=== PATIENT | male | born 1965 | race American Indian/Alaskan Native ===

== ENCOUNTER 2017-08-09 09:59 | Day surgery (SDC) | payer OTHER ==
[~2017-08-09 09:59] MED LIST: WATER FOR IRRIG STERILE IR ONE
--- NOTE | 2017-08-09 10:53 | Anesthesia Consultation ---
Anesthesia Consult and Med Hx Date of service: 08/09/17 - Airway Anesthetic Teeth Evaluation: Good ROM Head & Neck: Adequate Mental/Hyoid Distance: Adequate Mallampati Class: Class II Intubation Access Assessment: Probably Good - Pulmonary Exam CTA: Yes - Cardiac Exam Cardiac Exam: RRR - Pre-Operative Health Status ASA Pre-Surgery Classification: ASA2 Proposed Anesthetic Plan: MAC - Pulmonary Hx Smoking: No Hx Sleep Apnea: No - Cardiovascular System Hx Hypertension: No - Endocrine Hx Non-Insulin Dependent Diabetes: No - Additional Comments Anesthesia Medical History Comments: high cholesterol
--- NOTE | 2017-08-09 10:54 | Anesthesia Day of Surgery ---
Anesthesia Day of Surgery - Day of Surgery Patient Examined: Yes Patient H&P Reviewed: Yes Patient is NPO: Yes
[2017-08-09] MEDS ORDERED: NACL 0.9% 1000 ML 1,000 ML IV SCH (11:00)
[2017-08-09] MEDS ORDERED: DIPRIVAN 10 MG/ML IV ONE ×2 (11:56)
--- NOTE | 2017-08-09 13:19 | Operative Report ---
Operative Report Operative Report: Date of procedure: 08/09/2017 Procedure: Colonoscopy with Hot biopsy Polypectomy. Attending physician: Stephen Dudley MD Ream Cutter: Stephen Dudley MD Indication: Patient is a 51-year-old male who presents for colorectal cancer screening. A colonoscopy serves to evaluate patient for colorectal cancer screening. Consent: Informed consent was obtained after advising the patient and family regarding nature of this procedure, its indications, potential benefits as well as possible complications including but not limited to bleeding perforation and adverse reaction to medication, infection as well as other cardiopulmonary complications. An informed written and verbal consent was then obtained after due opportunity was provided for questions and answers. Monitoring: Patient was monitored continuously with pulse oximetry and electrocardiographic recordings as well as blood pressure recordings. Vital signs remained stable throughout this procedure with no untoward events. Preoperative assessment: Patient was assessed immediately prior to this procedure for capacity to tolerate monitored anesthesia care and moderate sedation as well as general anesthesia. Patient's ASA classification is 2, Mallampati class is 2, Hyomental distance is 3. Instrument: [employer] Together Nowinon videocolonoscope. Fujinon video endoscope. Medications: Propofol given intravenously in divided doses. For details please refer to anesthesia records. Description of procedure: Patient was placed in the left lateral decubitus position after achieving sedation, a digital rectal examination was performed following which the colonoscope was introduced into the anal verge and advanced to the cecum which was identified by the cecal valve, the appendiceal orifice, as well as by the cecal strap and direct transillumination. The colonoscope was subsequently withdrawn with careful inspection of all mucosal surfaces. Patient tolerated this procedure well and was subsequently taken to the recovery room. The following findings were noted. 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 There was a diminutive flat 5 mm polyp in the cecum which was removed by hot biopsy polypectomy and retrieved. The rest of the colon to the cecum was normal. On the retroflex view at the anal verge, patient had internal hemorrhoids. Patient tolerated the procedure well with no untoward events. Impression: Diminutive cecal polyp status post hot biopsy polypectomy. Mild melanosis coli. Prominent Internal hemorrhoids Plan: Follow pathology report High-fiber diet. Repeat colonoscopy in 5 years if polyp is adenomatous.
--- NOTE | 2017-08-09 13:20 | Discharge Summary ---
Short Stay Discharge Plan Activity: advance as tolerated Weight Bearing Status: Weight Bear as Tolerated Diet: regular
[2017-08-09 13:42] VITALS: BP 112/69
--- NOTE | 2017-08-09 14:04 | Post Anesthesia Evaluation ---
- Post Anesthesia Evaluation Patient Participated: Yes Airway Patent: Yes Stable Respiratory Function: Yes Nausea/Vomiting: No Temp > 96.8F: Yes Pain Manageable: Yes Adequeate Hydration: Yes Anesthesia Complications: No
== END 2017-08-09 10:00 | disposition home or self-care (01) ==
LOC: GIO 09:59
PROVIDERS: ATTEND Internal Medicine Gastroenterology
DX: Z12.11 Encounter for screening for malignant neoplasm of colon (principal); K63.89 Other specified diseases of intestine; D12.0 Benign neoplasm of cecum; K64.8 Other hemorrhoids; E78.00 Pure hypercholesterolemia, unspecified; Z91.09 Other allergy status, other than to drugs and biological substances; Z72.89 Other problems related to lifestyle; Z98.890 Other specified postprocedural states
CPT/HCPCS: 45384; 88305; J2704; J7030